=== PATIENT | female | born 1995 | race African-American/Black ===

== ENCOUNTER 2021-03-05 16:30 | Emergency (ER) | payer OTHER, MEDICAID ==
[~2021-03-05] VITALS: Ht 160 cm; Wt 68.0 kg
[2021-03-05 18:29] VITALS: BP 120/70
== END 2021-03-05 18:30 | disposition home or self-care (01) ==
LOC: M.ERS 16:30
DX: S90.01XA Contusion of right ankle, initial encounter (principal); S90.31XA Contusion of right foot, initial encounter; R60.0 Localized edema; Z98.890 Other specified postprocedural states; W22.8XXA Striking against or struck by other objects, initial encounter; Y93.89 Activity, other specified; Y92.89 Other specified places as the place of occurrence of the external cause; Y99.8 Other external cause status

== ENCOUNTER 2021-03-18 09:44 | Emergency (ER) | payer OTHER, MEDICAID ==
[~2021-03-18] VITALS: Ht 167.6 cm; Wt 68.0 kg
[2021-03-18 10:29] LABS: INFLUENZA A ANTIGEN Negative (Negative); INFLUENZA B ANTIGEN Negative (Negative)
[2021-03-18] MEDS ORDERED: ALBUTEROL2.5 MG/31 INH (10:33)
[2021-03-18] MEDS ORDERED: PREDNISONE 20 M20 MG PO (10:33)
[2021-03-18 11:31] VITALS: BP 126/85
== END 2021-03-18 11:32 | disposition home or self-care (01) ==
LOC: M.ERS 09:44
PROVIDERS: Nurse Practitioner Psychiatric/Mental Health
DX: J45.21 Mild intermittent asthma with (acute) exacerbation (principal); Z98.890 Other specified postprocedural states